=== PATIENT | female | born 1955 | race Caucasian/White ===

== ENCOUNTER 2016-04-21 17:43 | Emergency (ER) | payer BC ==
[~2016-04-21] VITALS: Ht 167.6 cm; Wt 89.3 kg
[~2016-04-21 17:43] MED LIST: CRESTOR10 MG PO; KEFLEX500 MG PO; LOSARTAN PO; [UNRECOGNIZED DRUG - OTHER] PO
[2016-04-21 18:36] LABS: EOSINOPHIL (%) 2.8 % (0-5); EOSINOPHIL COUNT 0.2 K/uL (0-0.3); HEMATOCRIT 36.1 % (36.0-46.0); IMMATURE GRANULOCYTE (%) 0.1 % (0.0-0.7); IMMATURE GRANULOCYTE COUNT 0.1 K/uL; LYMPHOCYTE COUNT 2.6 K/uL (1.0-2.8); MCH 30.9 PG (29.0-34.0); MCHC 35.5 G/DL (30.0-36.0); MCV 87.2 FL (83-99); MONOCYTE (%) 8.2 % (3-12); MONOCYTE COUNT 0.6 K/uL (0-0.8); NEUTROPHIL (%) 50.4 % (45-76); NEUTROPHIL COUNT 3.5 K/uL (1.8-6.4); PLATELET COUNT 233 K/uL (156-360); RBC DIS.WIDTH-CV 11.7 % (11.8-14.6); RBC DIS.WIDTH-SD 36.3 % (39-53); RED BLOOD COUNT 4.14 M/uL (3.80-5.20); WHITE BLOOD COUNT 6.8 K/uL (4.1-10.2)
[2016-04-21 18:56] LABS: CHLORIDE 100 mEq/L (99-109); POTASSIUM 4.1 mEq/L (3.7-5.4); SODIUM 137 mEq/L (136-147)
[2016-04-21 18:58] LABS: GLUCOSE 110 mg/dL (70-99)
[2016-04-21 18:59] LABS: ANION GAP 13 MEQ/L (2-14)
[2016-04-21 19:02] LABS: GFR ESTIMATE (CALCULATED) > 59 mL/min/; UREA NITROGEN (BUN) 15 mg/dL (9-23)
[2016-04-21 19:05] LABS: TROP-I INTERPRETATION NEGATIVE; TROPONIN-I < 0.01 ng/mL (0.0-0.30)
[2016-04-21] MEDS ORDERED: ESOMEPRAZOLE MA40 MG PO (19:41)
[2016-04-21] MEDS ORDERED: LOSARTAN-HCTZ1 EAC1 PO (19:41)
[2016-04-21] MEDS ORDERED: CLONAZEPAM0.5 MG PO (19:42)
[2016-04-21 20:12] VITALS: BP 129/69
== END 2016-04-21 20:14 | disposition home or self-care (01) ==
LOC: EME 17:43
PROVIDERS: Emergency Medicine
DX: R07.9 Chest pain, unspecified (principal); I10 Essential (primary) hypertension
CPT/HCPCS: 71010; 80048; 84484; 85025; 93005; 99281; 99285; J7030